=== PATIENT | male | born 1970 | race Hispanic/Latino ===

== ENCOUNTER 2022-10-02 03:37 | Emergency (ER) | payer OTHER ==
[~2022-10-02] VITALS: Ht 172.7 cm; Wt 76.7 kg
[2022-10-02] MEDS ORDERED: IBUPROFEN 600 MG TABLET PO ONE (04:00)
[2022-10-02] MEDS ORDERED: ACETAMINOPHEN 325 MG TAB PO ONE (04:00)
[2022-10-02 04:26] VITALS: BP 118/64
[2022-10-02] MEDS ORDERED: SOLU-MEDROL 125MG VIAL IM ONE (04:30)
[2022-10-02] MEDS ORDERED: METH4TAB3 PO (05:26)
[2022-10-03] MEDS ORDERED: NIRM1TAB5 PO (16:05)
== END 2022-10-02 05:41 | disposition home or self-care (01) ==
LOC: EDH 03:37
DX: U07.1 COVID-19 (principal); J06.9 Acute upper respiratory infection, unspecified; M79.18 Myalgia, other site; M54.50 Low back pain, unspecified
CPT/HCPCS: 99283; 87635; 87880; 87804 ×2; 96372; C9803; J2930